=== PATIENT | male | born 1970 | race Two or more races ===

== ENCOUNTER 2020-06-08 06:29 | Day surgery (SDC) | payer OTHER ==
[~2020-06-08 06:29] MED LIST: AMOX1TAB5 PO; CIPRO500 MG PO; COLACE100 MG PO; COZAAR50 MG; FLAGYL500MG PO; INTESTINEX680 MG PO; PERCOCET 5-3251 EACH PO; PROTONIX40 MG
[2020-06-08] MEDS ORDERED: COLACE100 MG PO (09:47)
[2020-06-08] MEDS ORDERED: PERCOCET 5-3251 EACH PO (09:47)
== END 2020-06-08 18:10 | disposition home or self-care (01) ==
LOC: CIR.AMB 06:29
PROVIDERS: ATTEND Surgery
DX: K60.3 Anal fistula (principal); Z20.828 Contact with and (suspected) exposure to other viral communicable diseases